=== PATIENT | male | born 1950 | race African-American/Black ===

== ENCOUNTER 2016-08-24 16:45 | Emergency (ER) | payer OTHER ==
[~2016-08-24] VITALS: Ht 175.3 cm; Wt 100.0 kg
[~2016-08-24 16:45] MED LIST: ASPI81 PO; CLOP75 PO; FLEX10TA OR; HYDR10TA16 PO; TOPR25TA2 PO
[2016-08-24 16:47] VITALS: BP 168/82; PULSE 70; RESP 20; TEMP 98.1; O2SAT 96
== END 2016-08-24 17:03 | disposition left against medical advice (07) ==
LOC: NED 16:45
DX: K59.00 Constipation, unspecified (principal); Z53.21 Procedure and treatment not carried out due to patient leaving prior to being seen by health care provider
CPT/HCPCS: 99281